=== PATIENT | female | born 2000 | race Two or more races ===

== ENCOUNTER 2023-06-04 10:24 | Emergency (ER) | payer OTHER ==
[~2023-06-04] VITALS: Ht 162.6 cm; Wt 52.2 kg
== END 2023-06-04 14:55 | disposition home or self-care (01) ==
LOC: ER 10:25
DX: M54.59 Other low back pain (principal)

== ENCOUNTER 2024-10-06 17:13 | Emergency (ER) | payer OTHER ==
[~2024-10-06] VITALS: Ht 165.1 cm; Wt 54.4 kg
[2024-10-06] MEDS ORDERED: FAMOtidine 10 MG/ML (4ML VIAL) IV PUSH ONE (18:45)
[2024-10-06] MEDS ORDERED: CHLORHEXIDINE GLUCONATE 120 ML BOTTLE TOP ONE ×2 (18:45→20:17)
[2024-10-06] MEDS ORDERED: DEXAMETHASONE SODIUM PHOSP/PF 10 MG/ML VIAL IJ ONE (18:45)
[2024-10-06] MEDS ORDERED: DEXAMETHASONE SODIUM PHOSPHATE 4 MG/ML VIAL ONE (20:16)
[2024-10-06] MEDS ORDERED: FAMOTIDINE/PF 20 MG/2 ML VIAL ONE (20:17)
[2024-10-06] MEDS ORDERED: LORazepam 2 MG/ML VIAL ONE (21:07)
[2024-10-06 21:11] LABS: BASO % 0.5 % (0.1-1.2); EOS % 3.6 % (0.7-7.0); HEMATOCRIT 41.1 % (34.1-44.9); HEMOGLOBIN 13.6 g/dL (11.2-15.7); LYMPH # 2.16 (1.18-3.74); LYMPH % 39.1 % (19.3-53.1); MEAN CORPUSCULAR HEMOGLOBIN 27.7 pg (25.6-32.2); MONO # 0.41 (0.24-0.82); MONO % 7.4 % (4.7-12.5); PLATELET COUNT 282 K/uL (163-369); RED BLOOD COUNT 4.91 M/uL (3.93-5.22); RED CELL DISTRIBUTION WIDTH 14.5 % (11.6-14.4)
[2024-10-06] MEDS ORDERED: PEPCID AC20 MG PO (22:03)
[2024-10-06] MEDS ORDERED: MEDROLPACK PO (22:03)
== END 2024-10-06 22:37 | disposition home or self-care (01) ==
LOC: ER 17:25
PROVIDERS: General Practice
DX: R21 Rash and other nonspecific skin eruption (principal)

== ENCOUNTER 2025-05-20 11:33 | Emergency (ER) | payer BC ==
[~2025-05-20] VITALS: Ht 165.1 cm; Wt 54.4 kg
[~2025-05-20 11:33] MED LIST: MEDROLPACK PO; PEPCID AC20 MG PO
[2025-05-20] MEDS ORDERED: ATOMOXETINE HCL10 MG (12:02)
[2025-05-20] MEDS ORDERED: KETOROLAC TROMETHAMINE 30 MG VIAL IM ONE (12:15)
[2025-05-20 13:39] LABS: BASO % 0.2 % (0.1-1.2); EOS # 0.22 (0.04-0.54); EOS % 4.4 % (0.7-7.0); ERYTHROCYTE SEDIMENTATION RATE 2 mm/hr (0-20); LYMPH # 1.52 (1.18-3.74); LYMPH % 30.6 % (19.3-53.1); MEAN PLATELET VOLUME 8.90 fl (9.4-12.4); MONO # 0.35 (0.24-0.82); MONO % 7.1 % (4.7-12.5); NEUT # 2.85 (1.56-6.13); NEUT % 57.5 % (34.0-71.1); RED CELL DISTRIBUTION WIDTH 13.3 % (11.6-14.4)
[2025-05-20 14:12] LABS: D DIMER < 0.19 MG/L
[2025-05-20] MEDS ORDERED: NORFLEX100MG PO (14:45)
== END 2025-05-20 14:54 | disposition home or self-care (01) ==
LOC: ER 11:34
PROVIDERS: General Practice
DX: M79.661 Pain in right lower leg (principal)